=== PATIENT | female | born 1985 | race Caucasian/White ===

== ENCOUNTER 2023-05-13 04:18 | Emergency (ER) | payer MEDICAID ==
[~2023-05-13] VITALS: Ht 157.5 cm; Wt 78.5 kg
[2023-05-13 04:20] VITALS: BP_SYST 128; PULSE 95; RESP 20; TEMP 98.8; O2SAT 98
[2023-05-13] MEDS ORDERED: LIDOCAINE 1%, 20 ML MDV 20 ML ONE (04:38)
[2023-05-13] MEDS: LIDOCAINE 1% 10 MG/ML, 20 ML MDV INJ ONE (05:05)
[2023-05-13] MEDS ORDERED: CLIN-142 PO (05:25)
[2023-05-13 05:27] VITALS: RESP 20; TEMP 98.8
[2023-05-13 06:08] VITALS: BP_SYST 128; PULSE 70; O2SAT 98
== END 2023-05-13 06:05 | disposition home or self-care (01) ==
LOC: SED 04:18
DX: L02.415 Cutaneous abscess of right lower limb (principal); Z79.899 Other long term (current) drug therapy
CPT/HCPCS: 87070; 87075; 99284; J2001

== ENCOUNTER 2023-05-15 11:26 | Emergency (ER) | payer MEDICAID ==
[~2023-05-15] VITALS: Ht 157.5 cm; Wt 77.1 kg
[2023-05-15 11:26] VITALS: BP_SYST 91; PULSE 89; RESP 18; TEMP 98.1; O2SAT 98
[~2023-05-15 11:26] MED LIST: CLIN-142 PO
[2023-05-15 11:58] VITALS: BP_SYST 91; PULSE 89; RESP 18; TEMP 98.1; O2SAT 98
== END 2023-05-15 11:55 | disposition home or self-care (01) ==
LOC: SED 11:26
DX: Z48.01 Encounter for change or removal of surgical wound dressing (principal); L02.415 Cutaneous abscess of right lower limb; Z79.899 Other long term (current) drug therapy
CPT/HCPCS: 99282